=== PATIENT | female | born 1970 | race Caucasian/White ===

== ENCOUNTER 2024-05-15 08:20 | Emergency (ER) | payer BC ==
[2024-05-15] MEDS ORDERED: Ibuprofen 600 MG TAB ONE (08:38)
[2024-05-15] MEDS ORDERED: Acetaminophen 500 MG TAB ONE (08:38)
== END 2024-05-15 09:49 | disposition home or self-care (01) ==
LOC: MADERS 08:20
DX: J10.1 Influenza due to other identified influenza virus with other respiratory manifestations (principal); I10 Essential (primary) hypertension
CPT/HCPCS: 71046; 87081; 87428; 87430